=== PATIENT | female | born 1975 | race Caucasian/White ===

== ENCOUNTER 2017-02-25 06:36 | Day surgery (SDC) | payer OTHER ==
[~2017-02-25 06:36] MED LIST: RINGER'S SOLUTION,LACTATED 1,000 ML IV PRN; ceFAZolin SODIUM 1 GM VIAL IV PRN
[2017-02-25] MEDS ORDERED: RINGER'S SOLUTION,LACTATED 1,000 ML IV ONE ×2 (07:37→09:15)
--- NOTE | 2017-02-25 09:32 | POSTOP NO ---
Date of Surgery: 02/25/17 Anesthesia: General Patient Tolerated the Procedure: Well Post Operative Diagnosis/Procedures: Tierce Filler: Lino Lopez PA-C Post-operative Diagnosis: Left near full-thickness supraspinatus rotator cuff tear Finding: Above Procedure: Left shoulder arthroscopy, mini open rotator cuff repair, subacromial decompression with acromioplasty Estimated Blood Loss: Minimal Specimens: None
--- NOTE | 2017-02-25 09:36 | OR ---
Operative Report - Dictated Report Narrative: Date: 02/25/2017 Physician: Juan David Villa M.D. [employer]idential [employer] Instructor: Lino Lopez PA-C Preoperative diagnosis: Left Shoulder supraspinatus rotator cuff tear, subacromial impingement Postoperative diagnosis: Left Shoulder supraspinatus rotator cuff tear, subacromial impingement Procedure: Left shoulder arthroscopy with mini open rotator cuff repair of the supraspinatus tendon, subacromial decompression with acromioplasty Anesthesia: General plus regional Complications: None Estimated blood loss: Minimal Specimens: None Retained implants: [employer] 4.5 mm peek helicoil anchor 2, footprint anchor 1 Drains: None Indications: Mrs. Colin Is a 42 year-old female who has been followed in my clinic with complaints of shoulder pain consistent a work-related injury resulting in a super spinatus rotator cuff tear. Physical exam and diagnostic imaging were consistent with his complaints and concern for near full-thickness super spinous rotator cuff tear and impingement. Conservative measures have failed including, but not limited to, passage of time, activity modification, medications, physical therapy/home exercise program, or injections. The risks, benefits, and alternatives were discussed in clinic. The risks being , bleeding, infection, blood clots, nerve, tendon, ligament, blood vessel injury, persistent pain, arthrosis, stiffness, need for prolonged therapy, need for additional procedures, and persistent symptoms. Consent was obtained in the clinic. Procedure: After marking the correct extremity in the preoperative holding area, a timeout was performed in the operating room. IV antibiotics consisting of Ancef were administered prior to the procedure. A general followed by regional anesthetic was induced by the nurse physician office secretary per my request. This was in the supine position, then the patient was transitioned to a beachchair position with all bony prominences well-padded, head in neutral, the nonoperative arm well supported, and the legs padded with SCDs in place. The operative shoulder was then prepped and draped in a standard sterile fashion. Preoperatively the shoulder had full passive range of motion, and grade 1 anterior instability. After marking out the bony landmarks, saline was infused into the joint through a posterior lateral portal site. A rebekah incision was made, and the blunt trocar and cannula was introduced into the shoulder joint. An accessory portal was placed in the rotator cuff interval using a spinal needle for guidance. Upon initial evaluation, the biceps tendon showed no tendinopathy or tear. The middle glenohumeral ligament was intact. Subscapularis tendon was intact. The glenoid showed no arthrosis or Bankart. The humeral head articular surface showed no arthrosis or Hill-Sachs. The anterior labrum was small but intact. The superior labrum was unremarkable. The pouch was unremarkable. The posterior labrum was unremarkable. The supraspinatus tendon was torn from just behind the biceps to the anterior portion of the infraspinatus involving approximately 90% of the thickness once it was debrided along the articular side. The infraspinatus tendon was unremarkable. Utilizing a lateral portal the rotator cuff tear was completed and debrided for repair. Attention was then turned to the subacromial space. Subacromial bursectomy was performed utilizing the prior portals. The coracoacromial ligament was intact. The bursal side of the rotator cuff demonstrated a tear as identified intra-articularly involving super spinous tendon. The acromial arch had an anterior lateral spur consistent with her radiographs and MRI. Utilizing a lateral portal, the acromion was skeletonized using cautery. A bur was utilized in order to repair resect approximately 4-5 mm of bone off the anterior and lateral aspect of the acromion resulting in a flattening of the overall acromial appearance. Based on the arthroscopic findings, as well as exam and radiographic findings, it was elected to proceed with a mini open rotator cuff repair. A longitudinal incision centered over the previously identified rotator cuff tear was made just off the edge of the acromion. This was approximately 4 centimeters in length. The deltoid fascia was split sharply in line with its fibers, and blunt dissection was carried through the deltoid muscle. Any remaining subacromial bursal tissue was debrided in order to expose the underlying rotator cuff tear. The rotator cuff tear appeared to be transverse orientation. The tuberosity was debrided of its soft tissues producing a bleeding bed for the tendon to be secured to. 2 4.5 mm PEEK helicoil anchor was placed just off the articular surface of the humeral head. A series of horizontal mattress sutures were placed at the prepared edge of the rotator cuff. This allowed for a tension-free return of the tendon to the greater tuberosity. The sutures were then passed longitudinally into 1 4.5 mm PEEK footprint anchor. This was performed and a suture bridge technique. This gave good overall compression to the rotator cuff at the insertion site. The shoulders place a range of motion and had no lift off of the repair site as well as no crepitance or signs of impingement. Full passive range of motion was able to be obtained. Once it was felt that the rotator cuff was adequately repaired, the wounds were thoroughly irrigated. 0 Vicryl was utilized in order to repair the deltoid fascia. 3-0 Vicryl was placed in the subcutaneous tissue. The rotator cuff incision as well as the portal sites were closed with interrupted nylon. Dressings consisting of Xeroform, 4 x 4, ABD, soft roll, and tape were applied. All sponge, needle, blade, and instrument counts were correct prior to closing the wounds. The patient was awoken and transferred to the postanesthesia care unit in stable condition.
--- NOTE | 2017-02-25 10:31 | OR ---
Anesthesia Procedure Note - Anesthesia Procedure Note Narrative: Vital Signs - Last Taken Temp 36.9 C 02/25/17 10:18 Pulse 65 02/25/17 10:18 Resp 16 02/25/17 10:18 BP 125/65 02/25/17 10:18 Pulse Ox 99 02/25/17 10:18 O2 Oxygen Delivery Method Room Air 02/25/17 10:25 ANESTHESIA PROCEDURE NOTE Date of procedure: 02/25/2017. Time of procedure: 07 50. Performed by: Ron Tomlin CRNA Quality Control Technician: Kera Michele RN . Preprocedure diagnosis: Left rotator cuff tear. Desire for postoperative analgesia.. Post procedure diagnosis: Same. Procedure: Ultrasound-guided left interscalene brachial plexus block Indications: Postoperative analgesia. Findings: Patient brought to operating room #4 and placed in the semi-Belle's position. Patient was sedated. Left-sided patient's neck was prepped with ChloraPrep. Ultrasound was used to identify brachial plexus between the anterior scalene and middle scalene muscles. The nerve stimulator was also utilized along with ultrasound to confirm needle placement. A 22-gauge 2 inch Stimuplex regional block needle was used to inject a total of 40 mL of 0.5% Marcaine with epinephrine 1 200,000 around the nerves in the brachial plexus. Adequate spread of local anesthetic was noted. EBL: Minimal. Fluids: N/A. Specimen: N/A. Post procedure condition: The patient tolerated the procedure well. No complications were noted. Thank you for this consultation Ron Tomlin CRNA
[2017-02-25 14:28] VITALS: BP 122/74
== END 2017-02-25 06:37 | disposition home or self-care (01) ==
LOC: AMB 06:36
PROVIDERS: ATTEND Orthopaedic Surgery
PROC: 0RNK4ZZ Release Left Shoulder Joint, Percutaneous Endoscopic Approach (ICD-10-PCS; 2017-02-25)
PROC: 0LQ20ZZ Repair Left Shoulder Tendon, Open Approach (ICD-10-PCS; 2017-02-25)
PROC: 0RHK04Z Insertion of Internal Fixation Device into Left Shoulder Joint, Open Approach (ICD-10-PCS; 2017-02-25)
PROC: 3E0T3BZ Introduction of Anesthetic Agent into Peripheral Nerves and Plexi, Percutaneous Approach (ICD-10-PCS; 2017-02-25)
PROC: 0RBK4ZZ Excision of Left Shoulder Joint, Percutaneous Endoscopic Approach (ICD-10-PCS; principal; 2017-02-25 08:00)
DX: M75.102 Unspecified rotator cuff tear or rupture of left shoulder, not specified as traumatic (principal); M75.42 Impingement syndrome of left shoulder; Z68.28 Body mass index [BMI] 28.0-28.9, adult